=== PATIENT | male | born 1960 | race American Indian/Alaskan Native ===

== ENCOUNTER 2018-12-30 09:58 | Emergency (ER) | payer BC, OTHER ==
[2018-12-30] MEDS ORDERED: SOLU-Medrol IV ONE (10:20)
[2018-12-30] MEDS ORDERED: NACL 0.9% 1000 ML 1,000 ML IV ONE (10:20)
[2018-12-30] MEDS ORDERED: MORPHINE IV ONE (10:21)
--- NOTE | 2018-12-30 10:28 | Emergency Department Report ---
HPI - General Chief Complaint: Skin Rash Time Seen by Provider: 12/30/18 10:18 - HPI HPI: 58-year-old Georgian male presents to the emergency department with complaint of a rash to the left side of the head and face and a small amount on the chest. It started off as one larger lesion to the left side of the scalp and the patient thought he was a spider. He went to an urgent care 3 days ago where he was placed on naproxen, Bactrim and metaxalone. However the symptoms have not improved and in fact have worsened. The patient has a past medical history of HIV but says he is compliant with HIV treatment and follows up with an infectious disease physician, Dr Larkin. He saw Dr Larkin two weeks ago and says he had a normal CD4 count and viral load. He denies any fever. He denies any pain inside of the left ear or to the left eye or any vision change. ED Past Medical Hx - Past Medical History Previous Medical History?: Yes Hx HIV: Yes - Surgical History Past Surgical History?: No - Social History Smoking Status: Current Every Day Smoker Substance Use Type: Alcohol, Prescribed - Medications Home Medications: Home Medications Medication Instructions Recorded Confirmed Last Taken Type Metaxalone 400 mg PO BID 12/30/18 12/30/18 Unknown History Smz/Tmp 1 tab PO BID 12/30/18 Unknown History Valacyclovir HCl [Valtrex] 1,000 mg PO TID #21 tablet 12/30/18 Unknown Rx oxyCODONE /ACETAMINOPHEN [Percocet 1 tab PO Q6HR PRN #16 tablet 12/30/18 Unknown Rx 5/325] ED Review of Systems ROS: Stated complaint: RASH Other details as noted in HPI Comment: All other systems reviewed and negative Constitutional: denies: chills, fever Eyes: denies: eye pain, vision change ENT: denies: ear pain, throat pain Respiratory: denies: cough, shortness of breath Cardiovascular: denies: chest pain, palpitations Gastrointestinal: denies: abdominal pain, vomiting Genitourinary: denies: urgency, dysuria Musculoskeletal: denies: back pain, arthralgia Skin: rash, lesions Neurological: denies: weakness, numbness, confusion Physical Exam - Physical Exam Vital Signs: Vital Signs 12/30/18 10:00 Temperature 97.8 F Pulse Rate 113 H Respiratory 18 Rate Blood Pressure 146/96 Blood Pressure 146/96 [Right] O2 Sat by Pulse 98 Oximetry Physical Exam: GENERAL: The patient is well-developed well-nourished. HEENT: Normocephalic. Atraumatic. Patient has moist mucous membranes. Normal-appearing bilateral external ear canals and tympanic membranes. EYES: Extraocular motions are intact. Pupils are equal and reactive to light bilaterally. There was no fluorescein uptake to the left eye on Pop lamp examination. NECK: Supple. Trachea is midline. CHEST/LUNGS: Clear to auscultation. There is no respiratory distress noted. HEART/CARDIOVASCULAR: Regular. There is no tachycardia. There is no obvious murmur. ABDOMEN: Abdomen is soft, nontender. Patient has normal bowel sounds. There is no abdominal distention. SKIN: Patient has a rash and lesions to the left side of the scalp and face, superior scalp, and the left side of the neck. There is a larger one that appears to be slightly ulcerated and crusting. Otherwise there are multiple individual vesicles and blisters. NEURO: The patient is awake, alert, and oriented. The patient is cooperative. The patient has no focal neurologic deficits. The patient has normal speech. MUSCULOSKELETAL: There is no tenderness or deformity. There is no evidence of acute injury. ED Course Vital Signs 12/30/18 10:00 Temperature 97.8 F Pulse Rate 113 H Respiratory 18 Rate Blood Pressure 146/96 Blood Pressure 146/96 [Right] O2 Sat by Pulse 98 Oximetry - Consultations Consultation #1: 12/30/18 13:47 I spoke with the infectious disease physician, Dr. Black, who agrees that the patient can be treated outpatient with oral valacyclovir since the patient appears to be immunocompetent despite his HIV status and the fact that the rash appears to be covering a few different dermatomes. He recommended that the patient had a fluorescein examination of the left eye and if negative for herpes zoster involvement, he can be discharged home. ED Medical Decision Making - Lab Data Result diagrams: 12/30/18 10:28 12/30/18 10:33 - Medical Decision Making Patient presents with a rash to the left side of the scalp and face and a little bit to the neck and chest. First he was being treated by an urgent care with some antibiotics and anti-inflammatories. The rash appears consistent with shingles as it has some vesicles and blisters that are only on the left side of the body and mostly cover to main dermatomes. There is no fever or leukocytosis. The patient says that he is compliant with his HIV medication and has a normal CD4 count and low viral load from his last visit with infectious disease from 2 weeks ago. Vital signs stable including being afebrile. I spoke with our infectious disease physician, Dr. Black, who feels that he is also safe for discharge home. The patient was given a 1 week course of Valtrex, some pain medication and a work note. He will return to the ER with any worsening of his symptoms or any acute distress. Patient's labs did show some mild renal insufficiency. We discussed staying away from NSAIDs and the importance of following up with his primary care physician as well. - Differential Diagnosis shingles, dermatitis, HIV Critical Care Time: No Critical care attestation.: If time is entered above; I have spent that time in minutes in the direct care of this critically ill patient, excluding procedure time. ED Disposition Clinical Impression: Renal insufficiency HIV (human immunodeficiency virus infection) Qualifiers: HIV symptom status: unspecified Qualified Code(s): B20 - Human immunodeficiency virus [HIV] disease Shingles Qualifiers: Herpes zoster complications: unspecified herpes zoster complication Qualified Code(s): B02.8 - Zoster with other complications Disposition: - TO HOME OR SELFCARE Is pt being admited?: No Condition: Stable Instructions: Herpes Zoster (ED), Impaired Kidney Function (ED) Additional Instructions: Please follow-up with your infectious disease physician in the next few days. Take the antiviral medication as prescribed. Avoid any anti-inflammatories such as naproxen, ibuprofen, Motrin, Advil, Aleve so it does not further worsen your kidney function. Follow-up with your primary care physician. Return to the emergency Department with any worsening of your symptoms or any acute distress. You have been prescribed a medication that can be sedating. Therefore, this medication cannot be taken prior to driving, working, being responsible for children, and cannot be mixed with alcohol of any quantity. Prescriptions: oxyCODONE /ACETAMINOPHEN [Percocet 5/325] 1 tab PO Q6HR PRN #16 tablet PRN Reason: Pain Valacyclovir HCl [Valtrex] 1,000 mg PO TID #21 tablet Referrals: Infectious Disease Physician, Your [Other] - [facility] Forms: Work/School Release Form(ED)
[2018-12-30] MEDS ORDERED: VALTREX PO ONE (10:30)
[2018-12-30 10:46] LABS: Basophils % (Auto) 0.4 % (0.0-1.8); Eosinophils # (Auto) 0.1 K/mm3 (0.0-0.4); Eosinophils % (Auto) 1.1 % (0.0-4.3); Hematocrit 50.8 % (35.5-45.6); Hemoglobin 17.5 gm/dl (11.8-15.2); Lymphocytes % (Auto) 10.3 % (13.4-35.0); Mean Corpuscular HGB Conc 34 % (32-34); Mean Corpuscular Volume 105 fl (84-94); Monocytes # (Auto) 1.1 K/mm3 (0.0-0.8); Monocytes % (Auto) 11.1 % (0.0-7.3); Platelet Count 232 K/mm3 (140-440); Red Blood Count 4.85 M/mm3 (3.65-5.03); Red Cell Distribution Width 13.6 % (13.2-15.2)
[2018-12-30 11:04] LABS: Calcium 9.3 mg/dL (8.4-10.2)
[2018-12-30] MEDS ORDERED: FUL-GLO OP ONE (12:04)
[2018-12-30] MEDS ORDERED: TETRACAINE 0.5% OS ONE (12:04)
[2018-12-30 13:47] VITALS: BP 136/72
== END 2018-12-30 13:42 | disposition home or self-care (01) ==
LOC: ED 09:58
DX: B02.9 Zoster without complications (principal); B20 Human immunodeficiency virus [HIV] disease; N28.9 Disorder of kidney and ureter, unspecified; F17.200 Nicotine dependence, unspecified, uncomplicated
CPT/HCPCS: 36415; 80048; 82140; 85025; 96361; 96374; 96375; 99284; J2270; J2930; J7030

== ENCOUNTER 2019-09-17 09:06 | Emergency (ER) | payer BC ==
--- NOTE | 2019-09-17 10:34 | Emergency Department Report ---
ED General Adult HPI - General Chief complaint: Upper Respiratory Infection Stated complaint: FLU LIKE SYMPTOMS Time Seen by Provider: 09/17/19 10:21 Source: patient Mode of arrival: Ambulatory Limitations: No Limitations - History of Present Illness Initial comments: This is a 59 year old HIV positive man who states that he is compliant with his retroviral medicine. He states that his CD4 count was last found to be 400 but his viral load was "high". He is here complaining of cough with some yellow sputum but no blood. He has had an occasional chill but has not checked his temperature. He states he might "have the flu". He did not get a flu vaccine. He does not complain of shortness of breath. He has had some myalgias. He was found to have renal insufficiency the last time he was here; his creatinine was 1.7. He is not now aware of this diagnosis. -: Gradual, days(s) Location: upper extremity, lower extremity Quality: aching Consistency: intermittent Improves with: none Worsens with: none Associated Symptoms: denies other symptoms, cough, other (myalgias). denies: shortness of breath - Related Data Home Medications Medication Instructions Recorded Confirmed Last Taken Metaxalone 400 mg PO BID 12/30/18 12/30/18 Unknown Smz/Tmp 1 tab PO BID 12/30/18 Unknown Previous Rx's Medication Instructions Recorded Last Taken Type Valacyclovir HCl [Valtrex] 1,000 mg PO TID #21 tablet 12/30/18 Unknown Rx oxyCODONE /ACETAMINOPHEN [Percocet 1 tab PO Q6HR PRN #16 tablet 12/30/18 Unknown Rx 5/325] Sulfamethoxazole/Trimethoprim 1 each PO BID #20 tablet 09/17/19 Unknown Rx [Bactrim DS TAB] Allergies Allergy/AdvReac Type Severity Reaction Status Date / Time No Known Allergies Allergy Unverified 03/11/14 14:26 ED Review of Systems ROS: Stated complaint: FLU LIKE SYMPTOMS Other details as noted in HPI Constitutional: denies: chills, fever Eyes: denies: eye pain, eye discharge, vision change ENT: other (mild hoarseness). denies: ear pain, throat pain Respiratory: cough. denies: shortness of breath, wheezing Cardiovascular: denies: chest pain, palpitations Endocrine: no symptoms reported Gastrointestinal: denies: abdominal pain, nausea, diarrhea Genitourinary: denies: urgency, dysuria Musculoskeletal: denies: back pain, joint swelling, arthralgia Skin: denies: rash, lesions Neurological: denies: headache, weakness, paresthesias Psychiatric: denies: anxiety, depression Hematological/Lymphatic: denies: easy bleeding, easy bruising ED Past Medical Hx - Past Medical History Hx HIV: Yes - Surgical History Past Surgical History?: No - Social History Smoking Status: Current Some Day Smoker Substance Use Type: Alcohol - Medications Home Medications: Home Medications Medication Instructions Recorded Confirmed Last Taken Type Metaxalone 400 mg PO BID 12/30/18 12/30/18 Unknown History Smz/Tmp 1 tab PO BID 12/30/18 Unknown History Valacyclovir HCl [Valtrex] 1,000 mg PO TID #21 tablet 12/30/18 Unknown Rx oxyCODONE /ACETAMINOPHEN [Percocet 1 tab PO Q6HR PRN #16 tablet 12/30/18 Unknown Rx 5/325] Sulfamethoxazole/Trimethoprim 1 each PO BID #20 tablet 09/17/19 Unknown Rx [Bactrim DS TAB] ED Physical Exam - General Limitations: No Limitations General appearance: alert, in no apparent distress - Head Head exam: Present: atraumatic, normocephalic - Eye Eye exam: Present: normal appearance. Absent: scleral icterus - ENT ENT exam: Present: mucous membranes moist - Neck Neck exam: Present: normal inspection - Respiratory Respiratory exam: Present: rhonchi (slight rhonchi). Absent: respiratory distress, accessory muscle use, decreased breath sounds, prolonged expiratory - Cardiovascular Cardiovascular Exam: Present: regular rate, normal rhythm. Absent: systolic murmur, diastolic murmur, rubs, gallop - GI/Abdominal GI/Abdominal exam: Present: soft, normal bowel sounds. Absent: distended, tenderness, guarding, rebound, rigid, organomegaly, mass, bruit, pulsatile mass, hernia - Rectal Rectal exam: Present: deferred - Extremities Exam Extremities exam: Present: normal inspection - Back Exam Back exam: Present: normal inspection - Neurological Exam Neurological exam: Present: alert, oriented X3, CN II-XII intact. Absent: motor sensory deficit - Psychiatric Psychiatric exam: Present: normal affect, normal mood - Skin Skin exam: Present: warm, dry, intact, normal color. Absent: rash ED Course Vital Signs 09/17/19 09:10 Temperature 97.8 F Pulse Rate 95 H Respiratory 18 Rate Blood Pressure 126/68 O2 Sat by Pulse 96 Oximetry - Reevaluation(s) Reevaluation #1: Patient resting comfortably. He states "is it the flu". I explained clinical impression. Encouraged follow-up. 09/17/19 14:22 ED Medical Decision Making - Lab Data Result diagrams: 09/17/19 11:51 09/17/19 11:51 Laboratory Results - last 24 hr 09/17/19 09/17/19 11:51 11:51 WBC 14.6 H RBC 3.89 Hgb 13.4 Hct 38.8 MCV 100 H MCH 34 H MCHC 34 RDW 13.3 Plt Count 275 Lymph % (Auto) 18.8 Pitt % (Auto) 10.9 H Eos % (Auto) 1.7 Baso % (Auto) 0.7 Lymph # 2.7 Pitt # 1.6 H Eos # 0.2 Baso # 0.1 Seg Neutrophils % 67.9 Seg Neutrophils # 9.9 H CK-MB (CK-2) 1.6 Laboratory Results - last 24 hr 09/17/19 09/17/19 09/17/19 11:51 11:51 11:51 WBC 14.6 H RBC 3.89 Hgb 13.4 Hct 38.8 MCV 100 H MCH 34 H MCHC 34 RDW 13.3 Plt Count 275 Lymph % (Auto) 18.8 Pitt % (Auto) 10.9 H Eos % (Auto) 1.7 Baso % (Auto) 0.7 Lymph # 2.7 Pitt # 1.6 H Eos # 0.2 Baso # 0.1 Seg Neutrophils % 67.9 Seg Neutrophils # 9.9 H Sodium 135 L Potassium 3.8 Chloride 101.7 Carbon Dioxide 21 L Anion Gap 16 BUN 15 Creatinine 1.3 Estimated GFR > 60 BUN/Creatinine Ratio 12 Glucose 99 Calcium 8.8 Total Bilirubin 0.80 Direct Bilirubin 0.2 Indirect Bilirubin 0.6 AST 22 ALT 14 Alkaline Phosphatase 82 Total Creatine Kinase 230 H CK-MB (CK-2) 1.6 CK-MB (CK-2) Rel Index 0.6 Total Protein 7.8 Albumin 3.8 L Albumin/Globulin Ratio 1.0 Critical care attestation.: If time is entered above; I have spent that time in minutes in the direct care of this critically ill patient, excluding procedure time. ED Disposition Clinical Impression: HIV positive Acute bronchitis Qualifiers: Bronchitis organism: unspecified organism Qualified Code(s): J20.9 - Acute bronchitis, unspecified Disposition: DC- TO HOME OR SELFCARE Is pt being admited?: No Does the pt Need Aspirin: No Condition: Stable Instructions: Acute Bronchitis (ED) Additional Instructions: Follow up with the infectious disease doctor. Rx as directed. Return any acute change or problem. Prescriptions: Sulfamethoxazole/Trimethoprim [Bactrim DS TAB] 1 each PO BID #20 tablet Referrals: PRIMARY CARE, [Primary Care Provider] - 3-5 Days usual, infectious disease clinic [Other] - 3-5 Days Time of Disposition: 14:23
--- NOTE | 2019-09-17 12:02 | XRay Report ---
CHEST 2 VIEWS INDICATION: cough, HIV. COMPARISON: None FINDINGS: Support devices: None. Heart: Within normal limits. Lungs/pleura: No acute air space or interstitial disease. Mild bibasilar atelectatic changes or scarr ing, right greater than. No pneumothorax. Additional findings: None. IMPRESSION: Bibasilar atelectatic changes. No acute cardiopulmonary process identified. Signer Name: Kailash Rose Jr, MD Signed: 09/17/2019 11:58 AM Workstation Name: [id number]
[2019-09-17 12:08] LABS: Basophils # (Auto) 0.1 K/mm3 (0.0-0.1); Basophils % (Auto) 0.7 % (0.0-1.8); Eosinophils # (Auto) 0.2 K/mm3 (0.0-0.4); Eosinophils % (Auto) 1.7 % (0.0-4.3); Hematocrit 38.8 % (35.5-45.6); Hemoglobin 13.4 gm/dl (11.8-15.2); Lymphocytes # (Auto) 2.7 K/mm3 (1.2-5.4); Lymphocytes % (Auto) 18.8 % (13.4-35.0); Mean Corpuscular HGB Conc 34 % (32-34); Mean Corpuscular Volume 100 fl (84-94); Monocytes # (Auto) 1.6 K/mm3 (0.0-0.8); Monocytes % (Auto) 10.9 % (0.0-7.3); Platelet Count 275 K/mm3 (140-440); Red Blood Count 3.89 M/mm3 (3.65-5.03); Red Cell Distribution Width 13.3 % (13.2-15.2)
[2019-09-17 13:28] LABS: Creatine Kinase MB 1.6 ng/mL (0.0-4.0)
[2019-09-17 13:31] LABS: Alanine Aminotransferase 14 units/L (7-56); Albumin 3.8 g/dL (3.9-5); BUN/Creatinine Ratio 12; Bilirubin,Direct 0.2 mg/dL (0-0.2); Blood Urea Nitrogen 15 mg/dL (9-20); Calcium 8.8 mg/dL (8.4-10.2); Hemolysis Index 19
[2019-09-17 15:19] VITALS: BP 130/70
== END 2019-09-17 15:17 | disposition home or self-care (01) ==
LOC: ED 09:06
DX: J20.9 Acute bronchitis, unspecified (principal); B20 Human immunodeficiency virus [HIV] disease; F17.200 Nicotine dependence, unspecified, uncomplicated; Z79.899 Other long term (current) drug therapy
CPT/HCPCS: 36415; 71046; 80048; 80076; 82550; 82553; 85025; 99283

== ENCOUNTER 2020-08-25 10:29 | Emergency (ER) | payer BC ==
[2020-08-25 10:53] VITALS: BP 143/85
--- NOTE | 2020-08-25 11:13 | XRay Report ---
XR chest routine 2V INDICATION / CLINICAL INFORMATION: cough, SOB COMPARISON: September 17, 2019 FINDINGS: SUPPORT DEVICES: None. HEART / MEDIASTINUM: No significant abnormality. LUNGS / PLEURA: Lungs are clear. Costophrenic sulci are sharp. No pneumothorax. ADDITIONAL FINDINGS: No significant additional findings. IMPRESSION: 1. No acute findings. Signer Name: Dakotah Keen MD Signed: 08/25/2020 11:08 AM Workstation Name: [id number]
--- NOTE | 2020-08-25 12:18 | Emergency Department Report ---
- General Chief Complaint: Upper Respiratory Infection Stated Complaint: COUGH/CONGESTION Time Seen by Provider: 08/25/20 12:11 Source: patient Mode of arrival: Ambulatory Limitations: No Limitations - History of Present Illness Initial Comments: 60-year-old [place] male resents emerged from complaining of a few day history of cough congestion and coryza with yellowish mucus production. No fever chills or sweats no wheezing. He reports no nausea vomiting no chest pain or palpitations no hematuria no dysuria. Reports having a past medical history of HIV no other comorbidities reported. MD Complaint: cough, rhinorrhea, nasal congestion Consistency: constant Improves With: nothing Worsens With: nothing Associated Symptoms: headache, rhinorrhea, cough. denies: right sweats, weight loss, epistaxis - Related Data Home Medications Medication Instructions Recorded Confirmed Last Taken Metaxalone 400 mg PO BID 12/30/18 12/30/18 Unknown Smz/Tmp 1 tab PO BID 12/30/18 Unknown Previous Rx's Medication Instructions Recorded Last Taken Type Valacyclovir HCl [Valtrex] 1,000 mg PO TID #21 tablet 12/30/18 Unknown Rx oxyCODONE /ACETAMINOPHEN [Percocet 1 tab PO Q6HR PRN #16 tablet 12/30/18 Unknown Rx 5/325] Sulfamethoxazole/Trimethoprim 1 each PO BID #20 tablet 09/17/19 Unknown Rx [Bactrim DS TAB] Albuterol Mdi (or & Nicu Only) 1 puff IH Q4-6H PRN #1 inha 08/25/20 Unknown Rx [ProAir HFA Inhaler] Azithromycin [Zithromax] 500 mg PO QDAY #5 tablet 08/25/20 Unknown Rx Benzonatate [Tessalon Perles] 100 mg PO Q8HR #20 capsule 08/25/20 Unknown Rx Allergies Allergy/AdvReac Type Severity Reaction Status Date / Time No Known Allergies Allergy Unverified 03/11/14 14:26 ED Review of Systems ROS: Stated complaint: COUGH/CONGESTION Other details as noted in HPI ED Past Medical Hx - Past Medical History Previous Medical History?: Yes Hx HIV: Yes - Surgical History Past Surgical History?: No - Social History Smoking Status: Current Some Day Smoker Substance Use Type: Alcohol - Medications Home Medications: Home Medications Medication Instructions Recorded Confirmed Last Taken Type Metaxalone 400 mg PO BID 12/30/18 12/30/18 Unknown History Smz/Tmp 1 tab PO BID 12/30/18 Unknown History Valacyclovir HCl [Valtrex] 1,000 mg PO TID #21 tablet 12/30/18 Unknown Rx oxyCODONE /ACETAMINOPHEN [Percocet 1 tab PO Q6HR PRN #16 tablet 12/30/18 Unknown Rx 5/325] Sulfamethoxazole/Trimethoprim 1 each PO BID #20 tablet 09/17/19 Unknown Rx [Bactrim DS TAB] Albuterol Mdi (or & Nicu Only) 1 puff IH Q4-6H PRN #1 inha 08/25/20 Unknown Rx [ProAir HFA Inhaler] Azithromycin [Zithromax] 500 mg PO QDAY #5 tablet 08/25/20 Unknown Rx Benzonatate [Tessalon Perles] 100 mg PO Q8HR #20 capsule 08/25/20 Unknown Rx ED Physical Exam - General Limitations: No Limitations General appearance: alert, in no apparent distress - Head Head exam: Present: atraumatic, normocephalic - Eye Eye exam: Present: normal appearance, PERRL, EOMI Pupils: Present: normal accommodation - ENT ENT exam: Present: normal exam, normal orophraynx, mucous membranes moist - Neck Neck exam: Present: normal inspection - Respiratory Respiratory exam: Present: normal lung sounds bilaterally, rhonchi. Absent: respiratory distress, wheezes, chest wall tenderness, accessory muscle use - Cardiovascular Cardiovascular Exam: Present: regular rate, normal rhythm. Absent: systolic murmur, diastolic murmur, rubs, gallop - GI/Abdominal GI/Abdominal exam: Present: soft, normal bowel sounds - Rectal Rectal exam: Present: deferred - Extremities Exam Extremities exam: Present: normal inspection - Back Exam Back exam: Present: normal inspection - Neurological Exam Neurological exam: Present: alert, oriented X3 - Psychiatric Psychiatric exam: Present: normal affect, normal mood - Skin Skin exam: Present: warm, dry, intact, normal color. Absent: rash ED Course Vital Signs 08/25/20 10:51 Temperature 98.3 F Pulse Rate 94 H Respiratory 20 Rate Blood Pressure 143/85 O2 Sat by Pulse 97 Oximetry ED Medical Decision Making - Radiology Data Radiology results: report reviewed Referring Physician:ED DOCPatient Name:ARINA Childs ID:[id number] of :[id number]:MaleAccession:[id number] Date:[id number] Status:Finalized Findings [facility] [address] [place] [address] XRay Report Signed Patient: ARINA BRADSHAW MR#: [id number] : 1960 Acct:[id number] Age/Sex: 60 / M ADM Date: 08/25/20 Loc: ED Attending Dr: Ordering Physician: ERIC MUNOZ MD Date of Service: 08/25/20 Procedure(s): XR chest routine 2V Accession Number(s): [id number] cc: ED MD TAMMY Fluoro Time In Minutes: XR chest routine 2V INDICATION / CLINICAL INFORMATION: cough, SOB COMPARISON: September 17, 2019 FINDINGS: SUPPORT DEVICES: None. HEART / MEDIASTINUM: No significant abnormality. LUNGS / PLEURA: Lungs are clear. Costophrenic sulci are sharp. No pneumothorax. ADDITIONAL FINDINGS: No significant additional findings. IMPRESSION: 1. No acute findings. Signer Name: Dakotah Keen MD Signed: 08/25/2020 11:08 AM Workstation Name: [id number] Transcribed By: CS Dictated By: Dakotah Keen MD Electronically Authenticated By: Dakotah Keen MD Signed Date/Time: 08/25/201107 DD/ 07 TD/TT: - Medical Decision Making This patient presents with acute cough, most consistent with bronchitis. Differential diagnosis includes bronchitis, pneumonia,. Presentation not consistent with acute bacterial pneumonia, influenza, asthma, transient airway hyperresponsiveness. Presentation not consistent with chronic causes of cough ( including GERD, asthma, postnasal discharge, medication side effect, CHF, lung cancer or mass). Normal CXR, supportive care, reassess Plan: Discharge home with cough medication antibiotics and bronchodilators and reevaluate in 3 days Critical care attestation.: If time is entered above; I have spent that time in minutes in the direct care of this critically ill patient, excluding procedure time. ED Disposition Clinical Impression: Bronchitis Disposition: DC-01 TO HOME OR SELFCARE Is pt being admited?: No Does the pt Need Aspirin: No Condition: Stable Instructions: Acute Bronchitis (ED) Prescriptions: Albuterol Mdi (or & Nicu Only) [ProAir HFA Inhaler] 1 puff IH Q4-6H PRN #1 inha PRN Reason: Cough Benzonatate [Tessalon Perles] 100 mg PO Q8HR #20 capsule Azithromycin [Zithromax] 500 mg PO QDAY #5 tablet Referrals: [facility] [Provider Group] - 3-5 Days
== END 2020-08-25 12:29 | disposition home or self-care (01) ==
LOC: ED 10:29
DX: J40 Bronchitis, not specified as acute or chronic (principal); F17.200 Nicotine dependence, unspecified, uncomplicated; Z79.899 Other long term (current) drug therapy; Z21 Asymptomatic human immunodeficiency virus [HIV] infection status
CPT/HCPCS: 71046

== ENCOUNTER 2020-09-02 09:12 | Emergency (ER) | payer BC ==
[2020-09-02 09:32] VITALS: BP 156/97
[2020-09-02] MEDS ORDERED: IBUPROFEN 600 MG TAB PO ONE (11:50)
[2020-09-02] MEDS ORDERED: DIPHtheria,PERTUSSIS(ACELL),TETANUS VACCINE/PF 0.5 ML VIAL IM ONE (11:50)
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
== END 2020-09-02 13:31 | disposition home or self-care (01) ==
LOC: ED 09:12
DX: S60.021A Contusion of right index finger without damage to nail, initial encounter (principal); S20.212A Contusion of left front wall of thorax, initial encounter; T07.XXXA Unspecified multiple injuries, initial encounter; R07.81 Pleurodynia; R59.1 Generalized enlarged lymph nodes; M79.644 Pain in right finger(s); F17.200 Nicotine dependence, unspecified, uncomplicated; Z21 Asymptomatic human immunodeficiency virus [HIV] infection status; Z79.899 Other long term (current) drug therapy; W50.3XXA Accidental bite by another person, initial encounter; Y93.89 Activity, other specified; Y92.89 Other specified places as the place of occurrence of the external cause; Y99.8 Other external cause status
CPT/HCPCS: 71250; 90471; 90715

== ENCOUNTER 2020-11-02 11:30 | Emergency (ER) | payer BC ==
[2020-11-02] MEDS ORDERED: ALBUTEROL 2.5 MG/3 ML NEBU IH ONE (14:22)
--- NOTE | 2020-11-02 14:25 | Emergency Department Report ---
- General Chief Complaint: Upper Respiratory Infection Stated Complaint: COLD,FLU SX Time Seen by Provider: 11/02/20 14:22 Source: patient Mode of arrival: Ambulatory Limitations: No Limitations - History of Present Illness MD Complaint: cough, rhinorrhea, nasal congestion -: Gradual Severity: mild, moderate Quality: dull Consistency: constant Associated Symptoms: rhinorrhea, cough, chest pain. denies: chills, myalgias, diaphoresis, headache, shortness of breath, abdominal pain, nausea, confusion, weight loss, epistaxis, ear pain Treatments Prior to Arrival: none - Related Data Home Medications Medication Instructions Recorded Confirmed Last Taken Metaxalone 400 mg PO BID 12/30/18 12/30/18 Unknown Smz/Tmp 1 tab PO BID 12/30/18 Unknown Previous Rx's Medication Instructions Recorded Last Taken Type Valacyclovir HCl [Valtrex] 1,000 mg PO TID #21 tablet 12/30/18 Unknown Rx oxyCODONE /ACETAMINOPHEN [Percocet 1 tab PO Q6HR PRN #16 tablet 12/30/18 Unknown Rx 5/325] Sulfamethoxazole/Trimethoprim 1 each PO BID #20 tablet 09/17/19 Unknown Rx [Bactrim DS TAB] Albuterol Mdi (or & Nicu Only) 1 puff IH Q4-6H PRN #1 inha 08/25/20 Unknown Rx [ProAir HFA Inhaler] Azithromycin [Zithromax] 500 mg PO QDAY #5 tablet 08/25/20 Unknown Rx Benzonatate [Tessalon Perles] 100 mg PO Q8HR #20 capsule 08/25/20 Unknown Rx Acetaminophen [Tylenol] 650 mg PO Q8HR PRN #14 capsule 09/02/20 Unknown Rx Amoxicillin/Potassium Clav 1 each PO BID 10 Days #20 tablet 09/02/20 Unknown Rx [Augmentin 875-125 Tablet] traMADoL [Ultram 50 MG tab] 50 mg PO Q6HR PRN #12 tablet 09/02/20 Unknown Rx Albuterol Mdi (or & Nicu Only) 1 puff IH Q4-6H PRN #1 inha 11/02/20 Unknown Rx [ProAir HFA Inhaler] Benzonatate [Tessalon Perles] 100 mg PO Q8HR #20 capsule 11/02/20 Unknown Rx Allergies Allergy/AdvReac Type Severity Reaction Status Date / Time No Known Allergies Allergy Verified 11/02/20 12:06 ED Review of Systems ROS: Stated complaint: COLD,FLU SX Other details as noted in HPI Comment: All other systems reviewed and negative ED Past Medical Hx - Past Medical History Hx HIV: Yes - Surgical History Past Surgical History?: No - Social History Smoking Status: Current Some Day Smoker Substance Use Type: Alcohol - Medications Home Medications: Home Medications Medication Instructions Recorded Confirmed Last Taken Type Metaxalone 400 mg PO BID 12/30/18 12/30/18 Unknown History Smz/Tmp 1 tab PO BID 12/30/18 Unknown History Valacyclovir HCl [Valtrex] 1,000 mg PO TID #21 tablet 12/30/18 Unknown Rx oxyCODONE /ACETAMINOPHEN [Percocet 1 tab PO Q6HR PRN #16 tablet 12/30/18 Unknown Rx 5/325] Sulfamethoxazole/Trimethoprim 1 each PO BID #20 tablet 09/17/19 Unknown Rx [Bactrim DS TAB] Albuterol Mdi (or & Nicu Only) 1 puff IH Q4-6H PRN #1 inha 08/25/20 Unknown Rx [ProAir HFA Inhaler] Azithromycin [Zithromax] 500 mg PO QDAY #5 tablet 08/25/20 Unknown Rx Benzonatate [Tessalon Perles] 100 mg PO Q8HR #20 capsule 08/25/20 Unknown Rx Acetaminophen [Tylenol] 650 mg PO Q8HR PRN #14 capsule 09/02/20 Unknown Rx Amoxicillin/Potassium Clav 1 each PO BID 10 Days #20 tablet 09/02/20 Unknown Rx [Augmentin 875-125 Tablet] traMADoL [Ultram 50 MG tab] 50 mg PO Q6HR PRN #12 tablet 09/02/20 Unknown Rx Albuterol Mdi (or & Nicu Only) 1 puff IH Q4-6H PRN #1 inha 11/02/20 Unknown Rx [ProAir HFA Inhaler] Benzonatate [Tessalon Perles] 100 mg PO Q8HR #20 capsule 11/02/20 Unknown Rx ED Physical Exam - General Limitations: No Limitations General appearance: alert, in no apparent distress - Head Head exam: Present: atraumatic, normocephalic - Eye Eye exam: Present: normal appearance, PERRL, EOMI Pupils: Present: normal accommodation - ENT ENT exam: Present: mucous membranes moist - Neck Neck exam: Present: normal inspection - Respiratory Respiratory exam: Present: normal lung sounds bilaterally, wheezes, rhonchi. Absent: respiratory distress - Cardiovascular Cardiovascular Exam: Present: regular rate, normal rhythm. Absent: bradycardia, systolic murmur, diastolic murmur, rubs, gallop - GI/Abdominal GI/Abdominal exam: Present: soft, normal bowel sounds. Absent: tenderness, guarding, rigid, hypoactive bowel sounds, bruit, pulsatile mass - Rectal Rectal exam: Present: deferred - Extremities Exam Extremities exam: Present: normal inspection - Back Exam Back exam: Present: normal inspection. Absent: CVA tenderness (R), CVA tenderness (L) - Neurological Exam Neurological exam: Present: alert, oriented X3, CN II-XII intact - Psychiatric Psychiatric exam: Present: normal affect, normal mood - Skin Skin exam: Present: warm, dry, intact, normal color. Absent: rash ED Course Vital Signs 11/02/20 12:08 Temperature 98.5 F Pulse Rate 99 H Respiratory 22 Rate Blood Pressure 177/96 O2 Sat by Pulse 95 Oximetry ED Medical Decision Making - Radiology Data Radiology results: report reviewed [facility] [address] [place] [address] XRay Report Signed Patient: ARINA BRADSHAW MR#: [id number] : 1960 Acct:[id number] Age/Sex: 60 / M ADM Date: 11/02/20 Loc: ED Attending Dr: Ordering Physician: AZEEM MCLEOD Date of Service: 11/02/20 Procedure(s): XR chest routine 2V Accession Number(s): [id number] cc: AZEEM MCLEOD Fluoro Time In Minutes: CHEST 2 VIEWS INDICATION / CLINICAL INFORMATION: Cough and wheezing. COMPARISON: None available. FINDINGS: SUPPORT DEVICES: None. HEART / MEDIASTINUM: No significant abnormality. LUNGS / PLEURA: No significant pulmonary or pleural abnormality. No pneumothorax. ADDITIONAL FINDINGS: No significant additional findings. IMPRESSION: 1. No acute findings. Signer Name: Kirit Ross MD Signed: 11/02/2020 2:59 PM Workstation Name: [id number] Transcribed By: VERONICA Dictated By: Kirit Ross MD Electronically Authenticated By: Kirit Ross MD Signed Date/Time: 11/02/201458 DD/ 58 TD/TT: - Medical Decision Making This patient presents with acute cough, most consistent with bronchitis URI. Differential diagnosis includes bronchitis, pneumonia, URI, hyperreactive airway disease. Presentation not consistent with acute bacterial pneumonia, influenza, asthma, transient airway hyperresponsiveness. Presentation not consistent with chronic causes of cough (including GERD, asthma, postnasal discharge, medication side effect, CHF, lung cancer or mass). Normal CXR Plan: , supportive care, reassess Critical care attestation.: If time is entered above; I have spent that time in minutes in the direct care of this critically ill patient, excluding procedure time. ED Disposition Clinical Impression: Cough, Bronchitis Disposition: - TO HOME OR SELFCARE Is pt being admited?: No Does the pt Need Aspirin: No Condition: Stable Instructions: Chronic Bronchitis (ED), Nonspecific Chest Pain, Adult, Cough, Adult, Upper Respiratory Infection, Adult, Cool Mist Vaporizer Prescriptions: Albuterol Mdi (or & Nicu Only) [ProAir HFA Inhaler] 1 puff IH Q4-6H PRN #1 inha PRN Reason: Cough Benzonatate [Tessalon Perles] 100 mg PO Q8HR #20 capsule Referrals: PRIMARY CARE, [Primary Care Provider] - 3-5 Days [facility] [Provider Group] - 3-5 Days
--- NOTE | 2020-11-02 15:04 | XRay Report ---
CHEST 2 VIEWS INDICATION / CLINICAL INFORMATION: Cough and wheezing. COMPARISON: None available. FINDINGS: SUPPORT DEVICES: None. HEART / MEDIASTINUM: No significant abnormality. LUNGS / PLEURA: No significant pulmonary or pleural abnormality. No pneumothorax. ADDITIONAL FINDINGS: No significant additional findings. IMPRESSION: 1. No acute findings. Signer Name: Kirit Ross MD Signed: 11/02/2020 2:59 PM Workstation Name: [id number]
[2020-11-02 16:49] VITALS: BP 175/107
== END 2020-11-02 16:51 | disposition home or self-care (01) ==
LOC: ED 11:30
DX: J40 Bronchitis, not specified as acute or chronic (principal); R05 Cough; F17.200 Nicotine dependence, unspecified, uncomplicated; Z21 Asymptomatic human immunodeficiency virus [HIV] infection status; Z79.2 Long term (current) use of antibiotics; Z79.899 Other long term (current) drug therapy
CPT/HCPCS: 71046; 94640; 94644